=== PATIENT | female | born 1975 | race Caucasian/White ===

== ENCOUNTER → 2018-05-23 | Outpatient (CLI) | payer OTHER, SELFPAY ==
[~2018-05-23] MED LIST: FLOMAX0.4 MG PO; IBUPROFEN 800800 M1 PO; NORCO 5-325 TA1 EACH PO; ZOFRAN ODT4 M1 PO
== END ==
LOC: M.RAD 08:55
DX: Z12.31 Encounter for screening mammogram for malignant neoplasm of breast (principal)

== ENCOUNTER → 2018-05-29 | Outpatient (CLI) | payer OTHER, SELFPAY | LOC: M.ULTRA 08:57 | DX: N63.11 Unspecified lump in the right breast, upper outer quadrant (principal) ==